=== PATIENT | female | born 1995 | race African-American/Black ===

== ENCOUNTER 2019-09-25 12:25 | Emergency (ER) | payer BC, OTHER, SELFPAY ==
[2019-09-25 13:18] LABS: Bacteria/HPF None Seen HPF (None Seen); Bilirubin Negative (Negative); Blood, Urine Negative (Negative); Clarity Clear (Clear); Glucose, Urine (Dipstick) Normal (Negative); Leukocyte 250 Leu/uL (Negative); Nitrite Negative (Negative); Protein, Urine (Dipstick) Negative (Neg-Trace); RBC/HPF 0-3 HPF (0-3); Urobilinogen Normal mg/dL (Less than 2)
[2019-09-25 13:55] LABS: #Eosinphils 0.1 thou/uL (0.0-0.7); #Lymphocytes 2.1 thou/uL (1.20-3.40); #Monocytes 0.6 thou/uL (0.11-0.59); #Neutrophils 5.4 thou/uL (1.40-6.50); %Basophils 0.6 % (0.0-1.0); %Eosinophils 1.1 % (0.0-10.0); %Lymphocytes 25.5 % (21.0-51.0); %Monocytes 7.5 % (0.0-10.0); %Neutrophils 65.3 % (42.0-75.0); Mean Corpuscular HGB CONC 33.6 g/dL (32.0-36.0); Mean Corpuscular Hemoglobin 30.4 pg (27.0-31.0); Mean Corpuscular Volume 90.6 fL (78.0-98.0); Mean Platelet Volume 7.6 fL (7.4-10.4); Platelet Count 359 thou/uL (130-400); RBC Distribution Width 12.4 % (11.5-14.5); Red Blood Cell (RBC) Count 3.93 mill/uL (4.20-5.40); White Blood Cell (WBC) Count 8.2 thou/uL (4.8-10.8)
--- NOTE | 2019-09-25 15:24 | ULT ---
Exam: Pelvic ultrasound HISTORY: Pelvic pain in a patient with positive . COMPARISON: None TECHNIQUE: Multiple grayscale and color Doppler images were obtained in a transabdominal and transvag inal pelvic ultrasound. Spectral analysis of the Doppler waveforms of the ovaries were performed. FINDINGS: Uterus and endometrium: There is a fluid collection within the endometrial canal which contains both a pole and a yolk sac. Cardiac Doppler does demonstrates heart tones with a heart rate of 120 bpm. The crown-rump length measures 0.36 cm corresponding to gestational age by ultrasoun d of 6 weeks. There is an approximately 4 mm curvilinear collection in a subchorionic location suggesting a tiny subchorionic hemorrhage. RIGHT OVARY: Normal flow, without focal mass. LEFT OVARY: Normal flow, without focal mass. Tiny amount free fluid is seen in the cul-de-sac. IMPRESSION: 1. Tiny subchorionic hemorrhage measuring less than 5 mm. Continued follow-up is recommended. 2. Evidence of intrauterine gestation with heart tones documented. Gestational age by measureme nt of the crown-rump length is 6 weeks.
== END 2019-09-25 16:12 | disposition home or self-care (01) ==
LOC: ERS 12:25
DX: O20.8 Other hemorrhage in early pregnancy (principal); Z3A.01 Less than 8 weeks gestation of pregnancy
CPT/HCPCS: 36415; 76856; 81003; 81015; 84702; 85025

== ENCOUNTER 2020-09-18 03:20 | Emergency (ER) | payer BC, OTHER ==
[2020-09-18] MEDS ORDERED: Ibuprofen 800 MG TAB ONE (03:55)
--- NOTE | 2020-09-18 08:11 | RAD ---
RIGHT WRIST 3 VIEWS: HISTORY: Fall with injury and pain. FINDINGS: Carpals appear normally aligned. No evidence of fracture. IMPRESSION: No acute finding. POS: [facility]W
== END 2020-09-18 04:01 | disposition home or self-care (01) ==
LOC: ERS 03:20
DX: S63.501A Unspecified sprain of right wrist, initial encounter (principal); W00.0XXA Fall on same level due to ice and snow, initial encounter

== ENCOUNTER 2021-05-29 17:31 | Emergency (ER) | payer BC, OTHER, SELFPAY ==
[2021-05-29] MEDS ORDERED: Ibuprofen 800 MG TAB ONE (18:39)
[2021-05-29] MEDS ORDERED: Acetaminophen 500 MG TAB ONE (18:39)
== END 2021-05-29 20:13 | disposition home or self-care (01) ==
LOC: ERS 17:31
DX: J02.9 Acute pharyngitis, unspecified (principal)
CPT/HCPCS: 87081; 87430; 87804; 99283

== ENCOUNTER 2022-09-12 14:17 | Emergency (ER) | payer OTHER | END 2022-09-12 15:09 | disposition home or self-care (01) | LOC: ERS 14:17 | DX: J06.9 Acute upper respiratory infection, unspecified (principal); F17.290 Nicotine dependence, other tobacco product, uncomplicated | CPT/HCPCS: 99283 ==

== ENCOUNTER 2024-07-11 07:02 | Emergency (ER) | payer SELFPAY | END 2024-07-11 10:24 | disposition home or self-care (01) | LOC: ERS 07:02 | DX: R07.89 Other chest pain (principal); F17.290 Nicotine dependence, other tobacco product, uncomplicated | CPT/HCPCS: 71045; 71275; 93005 ==

== ENCOUNTER 2025-04-12 13:51 | Emergency (ER) | payer BC, SELFPAY ==
[2025-04-12] MEDS ORDERED: Ketorolac Tromethamine 30 MG (1 mL) VIAL ONE (14:43)
[2025-04-12 17:17] LABS: #Basophils 0.05 10x3/uL (0.0-0.2); #Eosinophils 0.30 10x3/uL (0.0-0.7); #Monocytes 0.53 10x3/uL (0.11-0.59); #Neutrophils 4.29 10x3/uL (1.40-6.50); %Basophils 0.6 % (0.0-1.0); %Eosinophils 3.4 % (0.0-10.0); %Lymphocytes 40.6 % (21.0-51.0); %Monocytes 6.1 % (0.0-10.0); %Neutrophils 49.1 % (42.0-75.0); Hematocrit 38.9 % (36.0-47.0); Hemoglobin 12.5 g/dL (12.0-16.0); Mean Corpuscular Hemoglobin 28.2 pg (27.0-31.0); Mean Corpuscular Volume 87.6 fL (78.0-98.0); Platelet Count 351 10x3/uL (130-400); Red Blood Cell (RBC) Count 4.44 mill/uL (4.20-5.40); White Blood Cell (WBC) Count 8.74 10x3/uL (4.8-10.8)
[2025-04-12 17:38] LABS: ALT (SGPT) 14 U/L (Less than 34); AST (SGOT) 20 U/L (11-34); Albumin 3.9 g/dL (3.1-4.5); Alkaline Phosphatase 70 U/L (40-110); Anion Gap 11 mmol/L (10-20); BUN (Urea Nitrogen) 7 mg/dL (7.0-18.7); Bilirubin, Total 0.3 mg/dL (0.3-1.2); Calc. Creatinine Clearance 0 mL/min (70-130); Calcium 8.9 mg/dL (7.8-10.44); Carbon Dioxide 24 mmol/L (22-29); Chloride 107 mmol/L (98-107); Globulin 3.7 g/dL (2.4-3.5); Glucose 98 mg/dL (70-105); Potassium 4.5 mmol/L (3.5-5.1); Sodium 137 mmol/L (136-145)
== END 2025-04-12 18:00 | disposition home or self-care (01) ==
LOC: ERS 13:51
DX: R07.9 Chest pain, unspecified (principal); F17.290 Nicotine dependence, other tobacco product, uncomplicated
CPT/HCPCS: 36415; 71045; 80053; 84484; 85025; 87426; 93005; 96372; J1885